=== PATIENT | female | born 1960 | race Caucasian/White ===

== ENCOUNTER 2016-08-26 07:04 | Day surgery (SDC) | payer BC ==
--- NOTE | 2016-08-26 07:36 | NUR ---
PRE OP INSTRUCTIONS GIVEN AND SAFETY ISSUES DISCUSSED PT HAD QUESTIONS ANSWERED PT CONFIRMED PROCEDURE PT SIGNED CONSENT
--- NOTE | 2016-08-26 09:29 | Provider's Discharge Care Plan ---
Problem, Goal, Plan Problem List 1. History of colon polyps 2. Diverticulosis
--- NOTE | 2016-08-26 09:29 | Provider's Discharge Care Plan ---
Problem, Goal, Plan Problem List 1. History of colon polyps 2. Diverticulosis
--- NOTE | 2016-08-26 09:32 | NUR ---
rec'd from OR; SPONT RESP. LYING ON LT SIDE. ROUSES TO VERBAL.
--- NOTE | 2016-08-26 09:42 | NUR ---
ASKING QUESTIONS RE FINDINGS; INFO GIVEN.
--- NOTE | 2016-08-26 09:54 | OPERATIVE REPORT ---
DATE OF SURGERY: 08/26/2016 SURGEON: Gabino Cabrera MD PREOPERATIVE DIAGNOSIS: 1. History of colon polyps POSTOPERATIVE DIAGNOSIS: 1. Diverticulosis PROCEDURE PERFORMED: 1. Colonoscopy ANESTHESIA: Total IV general. INDICATIONS: The patient is a 56-year-old woman with previous colon polyps in 2011. SURGICAL TECHNIQUE: The patient was taken to the endoscopy suite, where total IV general was administered and the patient was placed in the left lateral decubitus position. A well-lubricated colonoscope was advanced the length colon under direct vision. The cecum and ileocecal valve were visualized. Multiple diverticula were seen in the sigmoid and left colon. There were no polyps or tumors seen, including a retroflexed view of the rectum. The patient left in good condition and no intraoperative complications were encountered.
--- NOTE | 2016-08-26 10:10 | NUR ---
PT RETURNED FROM PACU NO C/O DISCOMFORT DRINKING FLUIDS WITHOUT DIFFICULTY
--- NOTE | 2016-08-26 10:35 | NUR ---
PT PASSED FLATUS ASKED ABOUT GOING HOME REVIEWED DISCHARGE INSTRUCTIONS VERBAL AND WRITTEN PT AND SPOUSE EXPRESSED UNDERSTANDING
--- NOTE | 2016-08-26 10:40 | NUR ---
PT DISCHARGED AMBULATORY ACCOMPANIED BY SPOUSE
== END 2016-08-26 10:40 | disposition home or self-care (01) ==
LOC: OR SRH 07:04
PROVIDERS: Surgery
PROC: 0DJD8ZZ Inspection of Lower Intestinal Tract, Via Natural or Artificial Opening Endoscopic (ICD-10-PCS; principal; 2016-08-26 09:00)
DX: Z12.11 Encounter for screening for malignant neoplasm of colon (principal); K57.30 Diverticulosis of large intestine without perforation or abscess without bleeding; Z86.010 Personal history of colon polyps; Z80.0 Family history of malignant neoplasm of digestive organs
CPT/HCPCS: 29229; 50004; 60001; 83526